=== PATIENT | male | born 1995 | race Caucasian/White ===

== ENCOUNTER → 2022-05-23 | Day surgery (SDC) | payer OTHER ==
[2022-05-23] VITALS (7 sets, daily range): BP systolic 125–142; BP diastolic 74–81
[~2022-05-23] VITALS: Ht 175.3 cm; Wt 74.6 kg
[~2022-05-23] MED LIST: LIDOcaine 1%/PF 5ML 10 MG/ML VIAL ONE; OMEP20CA16 PO; ROPIVAcaine 0.5% (5mg/ml) 30ml vial ONE; Thrombin (Bovine) 5,000 unit vial TP ONE; acetaminophen 1,000mg/100ml IV 100 ML IV ONE; ceFAZolin inj. 2,000 MG in dextrose 5%-water 100 ML IV ONE; dexamethasone sod phosphate 4mg/ml inj. ONE; epiNEPHrine 1 mg/ml inj ONE; famotidine 20mg tablet PO ONE; fentaNYL/PF 50MCG/1 ML 2ML syringe ONE; gelatin sponge, absorbable (Gelfoam 100) sponge TP ONE; hydrALAZINE 20mg/ml inj. IV PRN; ketorolac trometh. 30mg/ml inj. ONE; labetalol 20mg/4ml (5mg/ml) syringe IV PRN; meperidine/PF 25mg/ml syringe IV PRN; midazolam 1 mg/ML 2ml injection ONE; morphine 2 MG/ML inj. syringe IV PRN; morphine 4 MG/ML inj SYRINge IV PRN; ondansetron/PF 4mg/2ml inj IV PRN; ondansetron/PF 4mg/2ml inj ONE; propofol inj 20 ML IV ONE; ringers solution, lacted 1,000 ML IV SCH; sevoflurane 250ml liquid IH ONE; vancomycin 1,500 MG in NS 300ml IV soln IV ONE
--- NOTE | 2022-05-23 10:05 | NUR ---
CSM: PULSES PRESENT AND MARKED. PATIENT WAS NOT ABLE TO WATCH THE VIDEO OR USE THE MUPIROCIN CREAM DUE TO INCARCERATION.
--- NOTE | 2022-05-23 13:45 | NUR ---
Received from OR via , accompanied by Anesthesiologist and report given by Anesthesiolgist. PATIENT [id number], DENIES PAIN, V/S WNL, SCD ON , PIV 20G rUE, dressing to left knee cdi with brace locked in extention.
--- NOTE | 2022-05-23 14:35 | NUR ---
PATIENT [id number], DENIES PAIN, V/S WNL, SCD OFF , PIV 20G rUE D/C, dressing to left knee cdi with brace locked in extention. PATIENT GIVEN D/C INSTRUCTIONS AND HE HAS VERBALIZED UNDERSTANDING WELL GUARDS. HE WAS ALSO GIVEN CRUTCHES AND DISCHARGED BACK TO FACILITY WITH GUARDS AND ALL HIS BELONGINGS.
== END | disposition home or self-care (01) ==
LOC: EEVIPCON 08:45 → PAS 10:03
PROVIDERS: ATTEND Orthopaedic Surgery
DX: S83.512A Sprain of anterior cruciate ligament of left knee, initial encounter (principal); S83.242A Other tear of medial meniscus, current injury, left knee, initial encounter; G89.18 Other acute postprocedural pain; X58.XXXA Exposure to other specified factors, initial encounter; Y93.89 Activity, other specified; Y92.89 Other specified places as the place of occurrence of the external cause; Y99.8 Other external cause status; Z79.899 Other long term (current) drug therapy; Z98.890 Other specified postprocedural states
CPT/HCPCS: 29881; 29888; 64447; 76942; 82948; C1713; C1762; J0131; J0690; J1100; J1885; J2175; J2250; J2405; J2704; J2795; J3010; J3370; J3490; J7030; J7040; J7060; J7120; L1832; Z7506; Z7508; Z7512; A4215; A4618; A6449; A7000; J0171